=== PATIENT | female | born 1950 | race African-American/Black ===

== ENCOUNTER 2018-03-31 16:52 | Emergency (ER) | payer OTHER ==
[~2018-03-31] VITALS: Ht 165.1 cm; Wt 60.0 kg
[2018-03-31] MEDS ORDERED: SODIUM CHLORIDE 0.9% 500 ML IV ONE (17:02)
[2018-03-31] MEDS ORDERED: DILTIAZEM HCL 5MG/ML 5ML VIAL IV ONE ×4 (17:15→21:15)
[2018-03-31 17:58] LABS: BASOPHILS % 0.2 % (0.0-2.0); HEMATOCRIT. 31.4 % (36.0-48.0); HEMOGLOBIN. 10.2 g/dL (12.0-16.0); LYMPHOCYTES % 33.9 % (20.0-50.0); MEAN CORPUSCULAR HEMOGLOBIN 25.4 pg (28.0-32.0); MEAN CORPUSCULAR VOLUME 77.6 fL (81.0-99.0); MEAN PLATELET VOLUME 9.9 fl (7.4-10.4); NEUTROPHILS % 55.9 % (40.0-76.0); PLATELET 61 x1000/uL (130-400); RED BLOOD CELL COUNT 4.04 mill/uL (4.2-5.4); RED CELL DISTRIBUTION WIDTH 17.4 % (11.6-14.6)
[2018-03-31 18:04] LABS: CHLORIDE 108 mEq/L (98-107)
[2018-03-31 18:06] LABS: INR 2.1; PARTIAL THROMBOPLASTIN TIME 56.4 sec (23.4-31.0)
[2018-03-31 18:10] LABS: PHOSPHORUS 2.5 mg/dL (2.5-4.9)
[2018-03-31 18:13] LABS: T4 FREE 1.56 ng/dL (0.76-1.46)
[2018-03-31] MEDS ORDERED: POTASSIUM CHLORIDE 20MEQ TABLET SR PO ONE (18:15)
[2018-03-31] MEDS ORDERED: DILTIAZEM HCL 30MG TABLET PO ONE (18:15)
[2018-03-31 18:32] LABS: PLATELET ESTIMATE MARKEDLY DECREASED
[2018-03-31] MEDS ORDERED: FUROSEMIDE 20MG/2ML VIAL IVP ONE (18:45)
[2018-03-31] MEDS ORDERED: MAGNESIUM 2 G PREMIX 50 ML IV ONE (18:45)
[2018-03-31] MEDS ORDERED: MAGNESIUM 1 G PREMIX 100 ML IV SCH (20:30)
[2018-03-31] MEDS ORDERED: DILTIAZEM HCL 125 MG in DEXT 5% WATER 100 ML IV ONE (21:15)
[2018-03-31] MEDS ORDERED: DILTIAZEM HCL 125 MG in DEXT 5% WATER 100 ML IV NR (21:15)
[2018-03-31 21:32] VITALS: BP 118/77
== END 2018-03-31 21:54 | disposition short-term general hospital (02) ==
LOC: ER 17:04 → CANBEDREQ 22:35
DX: I48.91 Unspecified atrial fibrillation (principal); E87.8 Other disorders of electrolyte and fluid balance, not elsewhere classified; I11.0 Hypertensive heart disease with heart failure; I50.40 Unspecified combined systolic (congestive) and diastolic (congestive) heart failure; D68.9 Coagulation defect, unspecified
CPT/HCPCS: 36415; 71045; 80053; 83690; 83735; 83880; 84100; 84439; 84443; 84481; 84484; 85025; 85610; 85730; 93005; 96365; 96375; 96376; 99291; J1940; J3475; J3490; J7040; J7060